=== PATIENT | female | born 1940 | race African-American/Black ===

== ENCOUNTER 2017-12-27 18:15 | Inpatient (IN) | payer MEDICARE, MEDICAID ==
[2017-12-27] MEDS ORDERED: NORMAL SALINE 1000 ML 1,000 ML IV ONE (19:53)
--- NOTE | 2017-12-27 19:56 | ER Document Report ---
ED Medical Screen (RME) - General Chief Complaint: Abnormal Lab Results Stated Complaint: POSSIBLE LOW SODIUM Time Seen by Provider: 12/27/17 19:53 Mode of Arrival: Wheelchair Information source: Patient, Relative Notes: 77-year-old female presented ED for complaint of low sodium. She states that she went to Dr. Reed's office last week he elsie blood and then he called her today told her to go and get blood drawn and then come to his office. When she got it to his office today she was told to come to the emergency room to get admitted for her low sodium. She has a set of labs with her from results from the doctor's office. She states she is also hurting from her arthritis that is chronic. Patient is alert and oriented. I have greeted and performed a rapid initial assessment of this patient. A comprehensive ED assessment and evaluation of the patient, analysis of test results and completion of medical decision making process will be conducted by an additional ED providers. TRAVEL OUTSIDE OF THE [place] IN LAST 30 DAYS: No - Related Data Allergies/Adverse Reactions: aspirin Allergy (Verified 12/27/17 18:19) Physical Exam - Vital signs Vitals: Temp Pulse Resp BP Pulse Ox 98.5 F 76 21 H 151/70 H 99 12/27/17 18:43 12/27/17 18:43 12/27/17 18:43 12/27/17 18:43 12/27/17 18:43 Course - Vital Signs Vital signs: Temp Pulse Resp BP Pulse Ox 98.5 F 76 21 H 151/70 H 99 12/27/17 18:43 12/27/17 18:43 12/27/17 18:43 12/27/17 18:43 12/27/17 18:43
--- NOTE | 2017-12-27 20:19 | ER Document Report ---
ED General - General Chief Complaint: Abnormal Lab Results Stated Complaint: POSSIBLE LOW SODIUM Time Seen by Provider: 12/27/17 19:53 Mode of Arrival: Wheelchair Information source: Relative TRAVEL OUTSIDE OF THE [place] IN LAST 30 DAYS: No - HPI Notes: 77-year-old lady presented today from Dr. Amin's office for evaluation of electrolyte abnormalities. Patient was seen at the office today and had lab work drawn and noted to have low sodium. Patient was referred here for admission. After speaking with family patient has been feeling generally tired and fatigued, patient has chronic arthritic pain in her knees. Patient also has been feeling slightly cold and places where people normally feel warm. No chest pain, no shortness of breath, no palpitations. - Related Data Allergies/Adverse Reactions: aspirin Allergy (Verified 12/27/17 18:19) Past Medical History - General Information source: Patient, Relative - Social History Smoking Status: Never Smoker Family History: None Review of Systems - Review of Systems Notes: REVIEW OF SYSTEMS: CONSTITUTIONAL: -fevers, -chills, + generalized fatigue, + tired EENT: -eye pain, + knee pain difficulty swallowing, -nasal congestion CARDIOVASCULAR: -chest pain, -syncope. RESPIRATORY: -cough, -SOB GASTROINTESTINAL: -abdominal pain, -nausea, -vomiting, -diarrhea GENITOURINARY: -dysuria, -hematuria MUSCULOSKELETAL: -back pain, -neck pain, + knee pain SKIN: -rash or skin lesions. HEMATOLOGIC: -easy bruising or bleeding. LYMPHATIC: -swollen, enlarged glands. NEUROLOGICAL: -altered mental status or loss of consciousness, -headache, - neurologic symptoms PSYCHIATRIC: -anxiety, -depression. ALL OTHER SYSTEMS REVIEWED AND NEGATIVE. Physical Exam - Vital signs Vitals: Temp Pulse Resp BP Pulse Ox 98.5 F 76 21 H 151/70 H 99 12/27/17 18:43 12/27/17 18:43 12/27/17 18:43 12/27/17 18:43 12/27/17 18:43 - Notes Notes: Reviewed vital signs and nursing note as charted by RN. CONSTITUTIONAL: Alert and oriented HEAD: Normocephalic; atraumatic EYES: PERRL ENT: normal nose; no rhinorrhea; dry mucous membranes NECK: Supple without meningismus; non-tender; no cervical lymphadenopathy, no masses CARD: Bradycardia; no murmurs, no clicks, no rubs, no gallops; symmetric distal pulses RESP: Normal chest excursion without splinting or tachypnea; breath sounds clear and equal bilaterally ABD/GI: Normal bowel sounds; non-distended; soft, BACK: The back appears normal and is non-tender to palpation EXT: Normal ROM in all joints; non-tender to palpation; no cyanosis, no effusions, no edema SKIN: Normal color for age and race; warm; dry; good turgor; capillary refill < 2 seconds; no acute lesions noted NEURO: .Cranial nerves 3-12 intact. Motor strength 5/5 bilaterally. Sensation intact to touch bilaterally. No pronator drift. Finger to nose intact bilaterally PSYCH: The patient's mood and manner are appropriate. Grooming and personal hygiene are appropriate. Course - Re-evaluation Re-evalutation: 12/27/17 20:51 77-year-old here for evaluation of abnormal lab findings Patient is here from the office of Dr. Amin I have reviewed the lab work and noted that patient has worsening kidney function with notable hyponatremia of 120, patient also has elevated TSH back and be contributing to her electrolyte abnormalities We will give patient gentle hydration We will obtain basic lab work, will consult Dr. Amin 12/27/17 22:16 Reassessment 10 PM Patient has improvement of her sodium compared to her sodium 2 days prior Patient does have worsening kidney function, discussed the case with Dr. Amin, agree with admission for further workup Recommended ultrasound of the kidneys, will obtain that I will add on urine as well as CK level Admit to inpatient - Vital Signs Vital signs: Temp Pulse Resp BP Pulse Ox 98.5 F 76 21 H 151/70 H 98 12/27/17 18:43 12/27/17 18:43 12/27/17 18:43 12/27/17 18:43 12/27/17 20:18 - Laboratory Result Diagrams: 12/27/17 20:45 12/27/17 20:45 Laboratory results interpreted by me: 12/27/17 12/27/17 20:45 20:45 MCV 98 H RDW 14.3 H Sodium 127.6 L Chloride 84 L BUN 29 H Creatinine 2.67 H Est GFR ( Amer) 21 L Est GFR (Non-Af Amer) 17 L Direct Bilirubin 0.6 H Total Protein 8.4 H Discharge - Discharge Clinical Impression: DEBORA (acute kidney injury), Hyponatremia Condition: Stable Disposition: ADMITTED INPATIENT Admitting Provider: Derek Unit Admitted: IMCU Referrals: HEBERT AMIN MD [Primary Care Provider] - Follow up as needed
[2017-12-27 20:58] LABS: ABSOLUTE EOSINOPHILS # (AUTO) 0.1 10^3/uL (0.0-0.6); ABSOLUTE LYMPHOCYTES (AUTO) 1.7 10^3/uL (0.5-4.7); ABSOLUTE MONOCYTES (AUTO) 0.8 10^3/uL (0.1-1.4); ABSOLUTE NEUT (AUTO) 4.3 10^3/uL (1.7-8.2); BASOPHILS % (AUTO) 0.6 % (0-2); HEMATOCRIT 38.9 % (36.0-47.0); HEMOGLOBIN 13.1 g/dL (12.0-15.5); LYMPHOCYTES % (AUTO) 24.9 % (13-45); MEAN CORPUSCULAR HEMOGLOBIN 32.9 pg (27.0-33.4); MEAN CORPUSCULAR HGB CONC 33.5 g/dL (32.0-36.0); MEAN CORPUSCULAR VOLUME 98 fl (80-97); MONOCYTES % (AUTO) 11.7 % (3-13); PLATELET COUNT 276 10^3/uL (150-450); RED BLOOD COUNT 3.97 10^6/uL (3.72-5.28); RED CELL DISTRIBUTION WIDTH 14.3 % (11.5-14.0); SEGMENTED NEUTROPHILS % (AUTO) 61.8 % (42-78); TOTAL CELLS COUNTED % (AUTO) 100 %; WHITE BLOOD COUNT 6.9 10^3/uL (4.0-10.5)
[2017-12-27 21:20] LABS: ALANINE AMINOTRANSFERASE 23 U/L (9-52); ALBUMIN 4.6 g/dL (3.5-5.0); ALKALINE PHOSPHATASE 82 U/L (38-126); ANION GAP 17 (5-19); ASPARTATE AMINO TRANSFERASE 29 U/L (14-36); BILIRUBIN,DIRECT 0.6 mg/dL (0.0-0.4); BILIRUBIN,TOTAL 0.9 mg/dL (0.2-1.3); BLOOD UREA NITROGEN 29 mg/dL (7-20); CALCIUM 9.4 mg/dL (8.4-10.2); CARBON DIOXIDE 27 mmol/L (22-30); CHLORIDE 84 mmol/L (98-107); GLUCOSE 89 mg/dL (75-110); POTASSIUM 3.8 mmol/L (3.6-5.0); SODIUM 127.6 mmol/L (137-145); TOTAL PROTEIN 8.4 g/dL (6.3-8.2)
[2017-12-27] MEDS ORDERED: HYDRALAZINE HCL INJ/PF 20 MG/1 ML SDV IV PRN (22:04)
[2017-12-27 23:18] LABS: URINE CREATININE 216.8 mg/dL (15-278)
[2017-12-27] MEDS: NORMAL SALINE 1000 ML 1,000 ML IV PRN (23:34)
--- NOTE | 2017-12-28 00:09 | RADIOLOGY REPORT (SQ) ---
EXAM DESCRIPTION: CT HEAD WITHOUT CLINICAL HISTORY: dizziness COMPARISON: None available TECHNIQUE: Axial CT of the head obtained from the skull apex to the skull base without contrast. FINDINGS: No acute intracranial hemorrhage identified. No mass, mass effect, shift of the midline, abnormal extra-axial fluid collection or CT evidence of acute ischemic change identified. The ventricular system and sulcal spaces are mildly enlarged compatible with mild cerebral atrophy. Confluent areas of hypodensity throughout the supratentorial white matter are nonspecific and may be related to chronic small vessel ischemic change. The visualized paranasal sinuses and the mastoids are clear. No skull fracture identified. Visualized orbits and globes are unremarkable. Atherosclerotic calcification of the intracranial internal carotid arteries. DLP:1033.75 mGy-cm IMPRESSION: 1. No acute intracranial abnormality by CT criteria. This exam was performed according to our departmental dose-optimization program, which includes automated exposure control, adjustment of the mA and/or kV according to patient size and/or use of iterative reconstruction technique.
--- NOTE | 2017-12-28 02:54 | RADIOLOGY REPORT (SQ) ---
EXAM DESCRIPTION: U/S RETROPERITON (RENAL/AORTA) CLINICAL HISTORY: worsening kidney function COMPARISON: None. TECHNIQUE: Real-time sonographic images of the retroperitoneum were obtained using a curved multihertz transducer. FINDINGS: The right kidney measures 9.1 cm in length. The left kidney measures 10.4 cm in length. No solid renal mass, shadowing renal calculi, or hydronephrosis. 1.9 cm superior pole right renal cyst. Possible echogenic debris within the urinary bladder. Normal urinary bladder wall thickness. IMPRESSION: 1. Possible echogenic debris in the urinary bladder. Correlation with urinalysis recommended. 2. No definite abnormality identified in the kidneys.
[2017-12-28 05:19] LABS: ABSOLUTE EOSINOPHILS # (AUTO) 0.1 10^3/uL (0.0-0.6); ABSOLUTE LYMPHOCYTES (AUTO) 1.6 10^3/uL (0.5-4.7); ABSOLUTE MONOCYTES (AUTO) 0.7 10^3/uL (0.1-1.4); BASOPHILS % (AUTO) 0.6 % (0-2); EOSINOPHILS % (AUTO) 2.3 % (0-6); HEMATOCRIT 33.6 % (36.0-47.0); HEMOGLOBIN 11.3 g/dL (12.0-15.5); LYMPHOCYTES % (AUTO) 24.1 % (13-45); MEAN CORPUSCULAR HEMOGLOBIN 32.4 pg (27.0-33.4); MEAN CORPUSCULAR HGB CONC 33.6 g/dL (32.0-36.0); MEAN CORPUSCULAR VOLUME 96 fl (80-97); MONOCYTES % (AUTO) 10.5 % (3-13); PLATELET COUNT 239 10^3/uL (150-450); RED BLOOD COUNT 3.49 10^6/uL (3.72-5.28); SEGMENTED NEUTROPHILS % (AUTO) 62.5 % (42-78); TOTAL CELLS COUNTED % (AUTO) 100 %; WHITE BLOOD COUNT 6.5 10^3/uL (4.0-10.5)
[2017-12-28 05:37] LABS: ANION GAP 12 (5-19); BLOOD UREA NITROGEN 33 mg/dL (7-20); CALCIUM 8.8 mg/dL (8.4-10.2); CARBON DIOXIDE 27 mmol/L (22-30); CHLORIDE 91 mmol/L (98-107); GLUCOSE 87 mg/dL (75-110); POTASSIUM 3.4 mmol/L (3.6-5.0); SODIUM 130.3 mmol/L (137-145)
[2017-12-28] MEDS: HYDRALAZINE HCL 25 MG TABLET PO SCH ×3 (06:03→21:32)
[2017-12-28] MEDS ORDERED: POTASSIUM CHLORIDE 10 MEQ TABLET.SA PO ONE (07:54)
[2017-12-28] MEDS ORDERED: AMLODIPINE BESYLATE 5 MG TABLET PO SCH (10:00)
[2017-12-28] MEDS: ENOXAPARIN SODIUM INJ 30 MG/0.3 ML DISP.SYRIN SUBCUT SCH (10:07)
[2017-12-28] MEDS: LANSOPRAZOLE 30 MG TAB.RAP.DR PO SCH (10:08)
[2017-12-28] MEDS: AMLODIPINE BESYLATE 5 MG TABLET PO SCH ×2 (10:08→21:32)
[2017-12-28] MEDS: LEVOTHYROXINE SODIUM 0.025 MG TABLET PO SCH (10:08)
--- NOTE | 2017-12-28 10:36 | RADIOLOGY REPORT (SQ) ---
EXAM DESCRIPTION: U/S LTD DUPLEX ART/JAKE FLOW COMPLETED DATE/TIME: 12/28/2017 9:48 am REASON FOR STUDY: Renal Artery US " r/o renal stenosis" COMPARISON: Renal ultrasound 12/28/2017 TECHNIQUE: Realtime and static grayscale images acquired. Selected color Doppler, velocities and spe ctral images recorded. LIMITATIONS: Difficult to visualize the renal artery origins off the aorta FINDINGS: RIGHT KIDNEY: RENAL ARTERY VELOCITIES: At the hilum, 54 cm/sec. Segmental artery velocity 49 cm/sec. RENAL VEIN: Color doppler flow present, patent. VELOCITY RATIO: 0.7. Normal waveforms. KIDNEY: 9 cm in length with diffuse cortical thinning and increased echogenicity from medical renal disease. 2 cm right upper pole cortical cyst. No hydronephrosis. No gross stones. LEFT KIDNEY: RENAL ARTERY VELOCITIES: At the hilum, 56 cm/sec. Segmental artery velocity 37 cm/sec. RENAL VEIN: Color doppler flow present, patent. VELOCITY RATIO: 1.5. Normal waveforms. KIDNEY: 10.4 cm in length with diffuse cortical thinning and increased echogenicity from medical arnulfo al disease. No stones. No hydronephrosis. BLADDER: Unremarkable OTHER: No other significant finding. IMPRESSION: NO DOPPLER EVIDENCE OF HEMODYNAMICALLY SIGNIFICANT RENAL ARTERY STENOSIS. COMMENT: NORMAL RENAL ARTERY/AORTA VELOCITY RATIO IS LESS THAN OR EQUAL TO 3.5. TECHNICAL DOCUMENTATION: JOB ID: [id number] [email or web address]- All Rights Reserved
--- NOTE | 2017-12-28 12:19 | PDOC H&P ---
History of Present Illness Admission Date/PCP: 12/27/17 22:17 HEBERT AMIN MD Patient complains of: Acute renal failure and hyponatremia History of Present Illness: RADHA MURPHY is a 77 year old female This 77-year-old females came to the office last month up to 4 years not taking any blood pressure medications and blood pressure was running 190/110 range with completely asymptomatic patient'sAnd the patient's initially started on her Diovan HCTZ which patient was taking exforge in the pastAnd then will get down to slowly week by week for the last 3 weeks the blood pressures to 150-160 range and also add the Norvasc 5 mg twice a day Last Wednesday patient's sodium was completely normal and creatinine was 1.03 with a recheck again the patient's creatinine was good to up to 1.69 and patient's sodium was 120 Patient's brought back to the office patient was complaining some mild weakness and some dizziness decided to send to the emergency departments will repeat sodium was 127 but patient's creatinine was 2.69 and decided to admit for further evaluations for the acute renal failure and hyponatremia Patient's denied any chest pain denied any shortness of the breath denied any headache but complaining some dizzy feeling Patient also have a hypothyroidism which is uncontrolled with the patient's came was about 35 TSH and patient was started on the levothyroxine's coming back to the 11 range When I saw the patient on the floor patients feeling better after starting the IV fluidsDenied any headache denied any bloody wheezing denied any dizziness denied any chest pain Past Medical History Cardiac Medical History: Reports: Hyperlipidema, Hypertension GI Medical History: Reports: Gastroesophageal Reflux Disease Past Surgical History Past Surgical History: Reports: Section, Cholecystectomy Social History Smoking Status: Former Smoker Last Time Smoked: 1969 Frequency of Alcohol Use: None Hx Prescription Drug Abuse: No - Advance Directive Resuscitation Status: Full Code Family History Family History: None, Reviewed & Not Pertinent Parental Family History Reviewed: Yes Children Family History Reviewed: Yes Sibling(s) Family History Reviewed.: Yes Medication/Allergy Home Medications: Amlodipine Besylate [Norvasc 5 mg Tablet] 5 mg PO DAILY 12/28/17 Levothyroxine Sodium [Synthroid 0.025 mg Tablet] 0.025 mg PO Q6AM 12/28/17 Omeprazole 40 mg PO DAILY 12/28/17 Pravastatin Sodium [Pravachol] 40 mg PO DAILY 12/28/17 Valsartan/Hydrochlorothiazide [Valsartan-Hctz 160-12.5 mg Tab] 1 tab PO DAILY Allergies/Adverse Reactions: aspirin Allergy (Verified 12/27/17 18:19) Review of Systems Constitutional: PRESENT: fatigue, weakness. ABSENT: chills, fever(s), headache( s), weight gain, weight loss Eyes: ABSENT: visual disturbances Ears: ABSENT: hearing changes Cardiovascular: ABSENT: chest pain, dyspnea on exertion, edema, orthropnea, palpitations Respiratory: ABSENT: cough, hemoptysis Gastrointestinal: ABSENT: abdominal pain, constipation, diarrhea, hematemesis, hematochezia, nausea, vomiting Genitourinary: ABSENT: dysuria, hematuria Musculoskeletal: ABSENT: joint swelling Integumentary: ABSENT: rash, wounds Neurological: ABSENT: abnormal gait, abnormal speech, confusion, dizziness, focal weakness, syncope Psychiatric: ABSENT: anxiety, depression, homidical ideation, suicidal ideation Endocrine: ABSENT: cold intolerance, heat intolerance, menstrual abnormalities, polydipsia, polyuria Hematologic/Lymphatic: ABSENT: easy bleeding, easy bruising, lymphadenopathy Physical Exam Vital Signs: Temp Pulse Resp BP Pulse Ox 97.6 F 55 L 14 138/52 H 96 12/28/17 08:05 12/28/17 08:05 12/28/17 08:05 12/28/17 08:05 12/28/17 08:05 Intake & Output 12/27/17 12/28/17 12/29/17 06:59 06:59 06:59 Weight 78.7 kg General appearance: PRESENT: no acute distress, well-developed, well-nourished Head exam: PRESENT: atraumatic, normocephalic Eye exam: PRESENT: conjunctiva pink, EOMI, PERRLA. ABSENT: scleral icterus Ear exam: PRESENT: normal external ear exam Mouth exam: PRESENT: moist, tongue midline Neck exam: PRESENT: full ROM. ABSENT: carotid bruit, JVD, lymphadenopathy, thyromegaly Respiratory exam: PRESENT: clear to auscultation maisha Cardiovascular exam: PRESENT: RRR. ABSENT: diastolic murmur, rubs, systolic murmur Pulses: PRESENT: normal dorsalis pedis pul, +2 pedal pulses bilateral Vascular exam: PRESENT: normal capillary refill GI/Abdominal exam: PRESENT: normal bowel sounds, soft. ABSENT: distended, guarding, mass, organolmegaly, rebound, tenderness Rectal exam: PRESENT: deferred Extremities exam: ABSENT: full ROM, left AKA, right AKA, left BKA, right BKA, calf tenderness, joint swelling, pedal edema, tenderness, other Musculoskeletal exam: PRESENT: ambulatory Neurological exam: PRESENT: alert, awake, oriented to person, oriented to place , oriented to time, oriented to situation, CN II-XII grossly intact. ABSENT: motor sensory deficit Psychiatric exam: PRESENT: appropriate affect, normal mood. ABSENT: homicidal ideation, suicidal ideation Skin exam: PRESENT: dry, intact, warm. ABSENT: cyanosis, rash Results Laboratory Results: 12/28/17 05:00 12/28/17 05:00 12/27/17 12/28/17 12/28/17 22:19 05:00 05:00 WBC 6.5 RBC 3.49 L Hgb 11.3 L Hct 33.6 L MCV 96 MCH 32.4 MCHC 33.6 RDW 14.0 Plt Count 239 Seg Neutrophils % 62.5 Lymphocytes % 24.1 Monocytes % 10.5 Eosinophils % 2.3 Basophils % 0.6 Absolute Neutrophils 4.0 Absolute Lymphocytes 1.6 Absolute Monocytes 0.7 Absolute Eosinophils 0.1 Absolute Basophils 0.0 Sodium 130.3 L Potassium 3.4 L Chloride 91 L Carbon Dioxide 27 Anion Gap 12 BUN 33 H Creatinine 2.26 H Est GFR ( Amer) 25 L Est GFR (Non-Af Amer) 21 L Glucose 87 Calcium 8.8 Urine Osmolality 237 L Impressions: Head CT 12/27/17 00:00 IMPRESSION: 1. No acute intracranial abnormality by CT criteria. This exam was performed according to our departmental dose-optimization program, which includes automated exposure control, adjustment of the mA and/or kV according to patient size and/or use of iterative reconstruction technique. Renal Ultrasound 12/27/17 22:01 IMPRESSION: 1. Possible echogenic debris in the urinary bladder. Correlation with urinalysis recommended. 2. No definite abnormality identified in the kidneys. Vascular Ultrasound 12/28/17 00:00 IMPRESSION: NO DOPPLER EVIDENCE OF HEMODYNAMICALLY SIGNIFICANT RENAL ARTERY STENOSIS. Assessment & Plan - Diagnosis (1) DEBORA (acute kidney injury) Is this a current diagnosis for this admission?: Yes Plan: Hospital discussed with the nephrology Dr. Alamo. The Diovan and HCTZ start the patient on IV fluid and will get the ultrasound of the kidney to further evaluateCheck the urine culture (2) Hyponatremia Is this a current diagnosis for this admission?: Yes Plan: Severe hyponatremia with some symptomatic currently most likely related to the dehydration's with patient suddenly try to control the diets and with the hydrochlorothiazide will stop the Diovan HCTZ started on IV fluid (3) Uncontrolled hypertension Is this a current diagnosis for this admission?: Yes Plan: We will continues on Norvasc 5 mg p.o. twice a day and add the hydralazine 25 mg p.o. every 8 and stop the Diovan HCTZ will also get the vascular ultrasounds to rule out any renal artery stenosis and 2D echocardiogram (4) Hyperlipidemia Qualifiers: Hyperlipidemia type: unspecified Qualified Code(s): E78.5 - Hyperlipidemia , unspecified Is this a current diagnosis for this admission?: Yes Plan: Continues to statin (5) Hypothyroidism Qualifiers: Hypothyroidism type: unspecified Qualified Code(s): E03.9 - Hypothyroidism , unspecified Is this a current diagnosis for this admission?: Yes Plan: Continues to levothyroxine's - Time Time Spent: 30 to 50 Minutes Medications reviewed and adjusted accordingly: Yes Anticipated discharge: Home Within: Other - Inpatient Certification Medical Necessity: Need Close Monitoring Due to Risk of Patient Decompensation, Need For IV Fluids Post Hospital Care: D/C [employer] [place] Documentation - Plan Summary Plan Summary: Continues IV fluid will get the 2D echo and vascular ultrasounds and continues to monitor the patient's. Discussed with the daughter about the patient's current conditions
--- NOTE | 2017-12-28 17:05 | RADIOLOGY REPORT (SQ) ---
EXAM DESCRIPTION: CAROTID DOPPLER COMPLETED DATE/TIME: 12/28/2017 4:44 pm REASON FOR STUDY: dizziness COMPARISON: CT brain 12/27/2017 TECHNIQUE: Grayscale ultrasound, Doppler velocity and spectra, and color Doppler images acquired of the extra-cranial carotid and vertebral arteries. Images stored on PACS. LIMITATIONS: None. FINDINGS: RIGHT CAROTID CCA Velocities: Within normal limits. ICA Velocities Peak systolic 1.1 m/s. End diastolic 0.29 m/s. Proximal ICA/CCA peak systolic ratio 1.4. Spectra normal. No significant plaque. LEFT CAROTID CCA Velocities: Within normal limits. ICA Velocities Peak systolic 0.8 m/s. End diastolic 0.18 m/s. Proximal ICA/CCA peak systolic ratio 1.8. Spectra normal. No significant plaque. VERTEBRAL ARTERIES: Antegrade flow. Normal waveforms. SUBCLAVIAN ARTERIES: Not examined. OTHER: No other significant finding. IMPRESSION: NO HEMODYNAMICALLY SIGNIFICANT STENOSIS. COMMENT: Quality ID #[id number]: Velocity criteria are extrapolated from the diameter data as defined by t he Society of Radiologists in Ultrasound Consensus Conference. Radiology 2003: 229; 340-346. TECHNICAL DOCUMENTATION: JOB ID: [id number] [employer]- All Rights Reserved
[2017-12-28] MEDS: NORMAL SALINE 1000 ML 1,000 ML IV PRN (18:00)
--- NOTE | 2017-12-28 18:31 | XCELERA REPORT ---
[address] [address] Transthoracic Echocardiogram Report Name: RADHA MURPHY Age: 77 yrs Gender: Female : 1940 Patient Status: Inpatient Patient Location: [address] [place] [id number] Study Date: 12/28/2017 03:23 PM Height: 64 in Weight: 169 lb BSA: 1.8 m2 Procedure: A complete two-dimensional transthoracic echocardiogram was performed (2D, M-mode, spectral and color flow Doppler). The study was technically adequate with some images being suboptimal in quality. Reason For Study: uncontrol htn Ordering Physician: HEBERT AMIN Performed By: Bernarda Lou Interpretation Summary The left ventricular ejection fraction is normal. Doppler measurements suggest pseudonormalized left ventricular relaxation, which is associated with grade II/IV or mild to moderate diastolic dysfunction There is mild concentric left ventricular hypertrophy. The left ventricle is grossly normal size. Wall motion cannot be accurately commented on, but no definite regional wall motion abnormalities noted. The right ventricular systolic function is normal. The left atrial size is normal. The right atrium is normal in size There is a mild amount of mitral regurgitation There is no mitral valve stenosis. There is a moderate amount of aortic regurgitation There is mild aortic stenosis There is a peak gradient of 25-30 mm of Hg. There is a trace to mild amount of tricuspid regurgitation There is mild pulmonary hypertension by echo Right ventricular systolic pressure is estimated to be elevated at 30- 40mmHg. Minimal pericardial effusion. MMode/2D Measurements & Calculations RVDd: 2.2 cm LVIDd: 5.2 cmFS: 41.5 % Ao root diam: 2.9 cm IVSd: 1.1 cm LVIDs: 3.0 cmEDV(Teich): 127.3 ml LVPWd: 1.1 cmESV(Teich): 35.6 ml Ao root area: 6.7 cm2 EF(Teich): 72.1 % LA dimension: 3.3 cm LVOT diam: 1.9 cm LVOT area: 2.8 cm2 Doppler Measurements & Calculations MV E max tomasz: MV P1/2t max tomasz: Ao V2 max: AI max tomasz: 74.5 cm/sec 74.0 cm/sec 267.1 cm/sec 495.3 cm/sec MV A max tomasz: MV P1/2t: 61.5 msec Ao max PG: AI max P.1 cm/sec MVA(P1/2t): 3.6 cm2 28.5 mmHg 98.1 mmHg MV E/A: 0.71 MV dec slope: REBEKAH(V,D): 1.6 cm2 AI dec slope: 352.9 cm/sec2 282.0 cm/sec2 AI P1/2t: 514.5 msec LV V1 max PG: PA V2 max: TR max tomasz: 9.9 mmHg 124.9 cm/sec 289.1 cm/sec LV V1 max: PA max P.2 mmHg TR max P.0 cm/sec 33.4 mmHg Left Ventricle The left ventricle is grossly normal size. There is mild concentric left ventricular hypertrophy. The left ventricular ejection fraction is normal. Doppler measurements suggest pseudonormalized left ventricular relaxation, which is associated with grade II/IV or mild to moderate diastolic dysfunction. Wall motion cannot be accurately commented on, but no definite regional wall motion abnormalities noted. Right Ventricle The right ventricle is grossly normal size. There is normal right ventricular wall thickness. The right ventricular systolic function is normal. Atria The right atrium is normal in size. The left atrial size is normal. Interarterial septum not well visualized and not well dopplered. Cannot comment on ASD/PFO presence. Mitral Valve The mitral valve is grossly normal. There is no mitral valve stenosis. There is a mild amount of mitral regurgitation. Aortic Valve The aortic valve is mildly calcified. There is mild aortic stenosis. There is a peak gradient of 25-30 mm of Hg. There is a moderate amount of aortic regurgitation. Tricuspid Valve The tricuspid valve is not well visualized secondary to technical limitations. There is no tricuspid stenosis. There is a trace to mild amount of tricuspid regurgitation. There is mild pulmonary hypertension by echo. Right ventricular systolic pressure is estimated to be elevated at 30-40mmHg. Pulmonic Valve The pulmonic valve is not well visualized. Great Vessels The aortic root is not well visualized but is probably normal size. The inferior vena cava was not well visualized. Effusions Minimal pericardial effusion. : HEBERT AMIN > Melody Farmer
[2017-12-28] MEDS: ATORVASTATIN CALCIUM 10 MG TABLET PO SCH (21:32)
[2017-12-29] MEDS: HYDRALAZINE HCL 25 MG TABLET PO SCH ×3 (05:18→21:37)
[2017-12-29] MEDS: NORMAL SALINE 1000 ML 1,000 ML IV PRN (06:24)
[2017-12-29 09:06] LABS: ABSOLUTE BASOPHILS # (AUTO) 0.1 10^3/uL (0.0-0.2); ABSOLUTE EOSINOPHILS # (AUTO) 0.1 10^3/uL (0.0-0.6); ABSOLUTE LYMPHOCYTES (AUTO) 1.6 10^3/uL (0.5-4.7); ABSOLUTE MONOCYTES (AUTO) 0.6 10^3/uL (0.1-1.4); ABSOLUTE NEUT (AUTO) 4.5 10^3/uL (1.7-8.2); BASOPHILS % (AUTO) 0.9 % (0-2); HEMATOCRIT 35.2 % (36.0-47.0); HEMOGLOBIN 11.8 g/dL (12.0-15.5); LYMPHOCYTES % (AUTO) 23.1 % (13-45); MEAN CORPUSCULAR HEMOGLOBIN 32.3 pg (27.0-33.4); MEAN CORPUSCULAR HGB CONC 33.6 g/dL (32.0-36.0); MEAN CORPUSCULAR VOLUME 96 fl (80-97); MONOCYTES % (AUTO) 9.2 % (3-13); PLATELET COUNT 238 10^3/uL (150-450); RED BLOOD COUNT 3.66 10^6/uL (3.72-5.28); RED CELL DISTRIBUTION WIDTH 14.1 % (11.5-14.0); SEGMENTED NEUTROPHILS % (AUTO) 64.8 % (42-78); TOTAL CELLS COUNTED % (AUTO) 100 %; WHITE BLOOD COUNT 6.9 10^3/uL (4.0-10.5)
[2017-12-29 09:24] LABS: ANION GAP 13 (5-19); BLOOD UREA NITROGEN 21 mg/dL (7-20); CARBON DIOXIDE 24 mmol/L (22-30); CHLORIDE 99 mmol/L (98-107); SODIUM 135.9 mmol/L (137-145)
[2017-12-29 09:25] LABS: GLUCOSE 94 mg/dL (75-110)
[2017-12-29] MEDS ORDERED: NORMAL SALINE 1000 ML 1,000 ML IV PRN (09:41)
[2017-12-29] MEDS: LANSOPRAZOLE 30 MG TAB.RAP.DR PO SCH (10:08)
[2017-12-29] MEDS: AMLODIPINE BESYLATE 5 MG TABLET PO SCH ×2 (10:08→21:37)
[2017-12-29] MEDS: LEVOTHYROXINE SODIUM 0.025 MG TABLET PO SCH (10:08)
[2017-12-29] MEDS: CEPHALEXIN 500 MG CAPSULE PO SCH ×2 (10:08→21:37)
[2017-12-29] MEDS: ENOXAPARIN SODIUM INJ 30 MG/0.3 ML DISP.SYRIN SUBCUT SCH (10:09)
--- NOTE | 2017-12-29 15:10 | PDOC PROGRESS REPORT ---
Subjective Progress Note for:: 12/29/17 Subjective:: Patient is currently doing well patient is currently doing much better Patient's kidney function is all improved with creatinine is 1.45 and sodium is all 135 Patient's carotid Doppler and echo was all stable Patient's denied any chest pain denied any shortness of the breath She does walk in the hallway without any problem Reason For Visit: ACUTE RENAL FAILURE Physical Exam Vital Signs: Temp Pulse Resp BP Pulse Ox 97.6 F 83 16 171/63 H 100 12/29/17 14:53 12/29/17 14:53 12/29/17 14:53 12/29/17 14:53 12/29/17 14:53 Intake & Output 12/28/17 12/29/17 12/30/17 06:59 06:59 06:59 Intake Total 2569 300 Balance 2569 300 Weight 78.7 kg 79.3 kg General appearance: PRESENT: no acute distress, well-developed, well-nourished Head exam: PRESENT: atraumatic, normocephalic Eye exam: PRESENT: conjunctiva pink, EOMI, PERRLA. ABSENT: scleral icterus Ear exam: PRESENT: normal external ear exam Mouth exam: PRESENT: moist, tongue midline Neck exam: PRESENT: full ROM. ABSENT: carotid bruit, JVD, lymphadenopathy, thyromegaly Respiratory exam: PRESENT: clear to auscultation maisha Cardiovascular exam: PRESENT: RRR. ABSENT: diastolic murmur, rubs, systolic murmur Pulses: PRESENT: normal dorsalis pedis pul, +2 pedal pulses bilateral Vascular exam: PRESENT: normal capillary refill GI/Abdominal exam: PRESENT: normal bowel sounds, soft. ABSENT: distended, guarding, mass, organolmegaly, rebound, tenderness Rectal exam: PRESENT: deferred Extremities exam: ABSENT: full ROM, left AKA, right AKA, left BKA, right BKA, calf tenderness, joint swelling, pedal edema, tenderness, other Musculoskeletal exam: PRESENT: ambulatory Neurological exam: PRESENT: alert, awake, oriented to person, oriented to place , oriented to time, oriented to situation, CN II-XII grossly intact. ABSENT: motor sensory deficit Psychiatric exam: PRESENT: appropriate affect, normal mood. ABSENT: homicidal ideation, suicidal ideation Skin exam: PRESENT: dry, intact, warm. ABSENT: cyanosis, rash Results Laboratory Results: 12/29/17 08:46 12/29/17 08:46 12/29/17 12/29/17 08:46 08:46 WBC 6.9 RBC 3.66 L Hgb 11.8 L Hct 35.2 L MCV 96 MCH 32.3 MCHC 33.6 RDW 14.1 H Plt Count 238 Seg Neutrophils % 64.8 Lymphocytes % 23.1 Monocytes % 9.2 Eosinophils % 2.0 Basophils % 0.9 Absolute Neutrophils 4.5 Absolute Lymphocytes 1.6 Absolute Monocytes 0.6 Absolute Eosinophils 0.1 Absolute Basophils 0.1 Sodium 135.9 L Potassium 4.0 Chloride 99 Carbon Dioxide 24 Anion Gap 13 BUN 21 H Creatinine 1.45 H Est GFR ( Amer) 42 L Est GFR (Non-Af Amer) 35 L Glucose 94 Calcium 9.0 12/27/17 22:19 Clean Catch Midstream Urine Culture - Final Group B Beta Streptococcus Impressions: Head CT 12/27/17 00:00 IMPRESSION: 1. No acute intracranial abnormality by CT criteria. This exam was performed according to our departmental dose-optimization program, which includes automated exposure control, adjustment of the mA and/or kV according to patient size and/or use of iterative reconstruction technique. Renal Ultrasound 12/27/17 22:01 IMPRESSION: 1. Possible echogenic debris in the urinary bladder. Correlation with urinalysis recommended. 2. No definite abnormality identified in the kidneys. Carotid Doppler Study 12/28/17 00:00 IMPRESSION: NO HEMODYNAMICALLY SIGNIFICANT STENOSIS. Vascular Ultrasound 12/28/17 00:00 IMPRESSION: NO DOPPLER EVIDENCE OF HEMODYNAMICALLY SIGNIFICANT RENAL ARTERY STENOSIS. Assessment & Plan - Diagnosis (1) DEBORA (acute kidney injury) Is this a current diagnosis for this admission?: Yes Plan: Currently all resolving continues IV fluid (2) Hyponatremia Is this a current diagnosis for this admission?: Yes Plan: Currently all resolved (3) Uncontrolled hypertension Is this a current diagnosis for this admission?: Yes Plan: Currently better controlled with this hydralazine (4) Hyperlipidemia Qualifiers: Hyperlipidemia type: unspecified Qualified Code(s): E78.5 - Hyperlipidemia , unspecified Is this a current diagnosis for this admission?: Yes Plan: Continues to statin (5) Hypothyroidism Qualifiers: Hypothyroidism type: unspecified Qualified Code(s): E03.9 - Hypothyroidism , unspecified Is this a current diagnosis for this admission?: Yes Plan: Continues to levothyroxine's - Time Time Spent with patient: 15-24 minutes Medications reviewed and adjusted accordingly: Yes Anticipated discharge: Home Within: within 24 hours - Inpatient Certification Medical Necessity: Need Close Monitoring Due to Risk of Patient Decompensation, Need For IV Fluids Post Hospital Care: D/C Cloth Neutralizer Documentation - Plan Summary Plan Summary: Discussed with the patient and daughter about the patient's current conditions of the patient's continues to be improved in the next 24 Hour Discharge Homes
[2017-12-29] MEDS: ATORVASTATIN CALCIUM 10 MG TABLET PO SCH (21:37)
[2017-12-30] MEDS: HYDRALAZINE HCL 25 MG TABLET PO SCH ×2 (05:04→13:10)
[2017-12-30 09:16] LABS: ABSOLUTE BASOPHILS # (AUTO) 0.1 10^3/uL (0.0-0.2); ABSOLUTE EOSINOPHILS # (AUTO) 0.1 10^3/uL (0.0-0.6); ABSOLUTE LYMPHOCYTES (AUTO) 1.8 10^3/uL (0.5-4.7); ABSOLUTE MONOCYTES (AUTO) 0.6 10^3/uL (0.1-1.4); EOSINOPHILS % (AUTO) 1.3 % (0-6); HEMATOCRIT 34.8 % (36.0-47.0); HEMOGLOBIN 11.6 g/dL (12.0-15.5); LYMPHOCYTES % (AUTO) 23.4 % (13-45); MEAN CORPUSCULAR HEMOGLOBIN 32.4 pg (27.0-33.4); MEAN CORPUSCULAR HGB CONC 33.4 g/dL (32.0-36.0); MEAN CORPUSCULAR VOLUME 97 fl (80-97); MONOCYTES % (AUTO) 7.7 % (3-13); PLATELET COUNT 272 10^3/uL (150-450); RED BLOOD COUNT 3.59 10^6/uL (3.72-5.28); RED CELL DISTRIBUTION WIDTH 14.4 % (11.5-14.0); SEGMENTED NEUTROPHILS % (AUTO) 66.6 % (42-78); TOTAL CELLS COUNTED % (AUTO) 100 %; WHITE BLOOD COUNT 7.5 10^3/uL (4.0-10.5)
[2017-12-30 09:35] LABS: ANION GAP 12 (5-19); BLOOD UREA NITROGEN 12 mg/dL (7-20); CALCIUM 9.4 mg/dL (8.4-10.2); CARBON DIOXIDE 24 mmol/L (22-30); CHLORIDE 101 mmol/L (98-107); GLUCOSE 108 mg/dL (75-110); POTASSIUM 3.9 mmol/L (3.6-5.0); SODIUM 136.9 mmol/L (137-145)
[2017-12-30] MEDS: ENOXAPARIN SODIUM INJ 30 MG/0.3 ML DISP.SYRIN SUBCUT SCH (09:47)
[2017-12-30] MEDS: CEPHALEXIN 500 MG CAPSULE PO SCH (09:47)
[2017-12-30] MEDS: AMLODIPINE BESYLATE 5 MG TABLET PO SCH (09:48)
[2017-12-30] MEDS: LEVOTHYROXINE SODIUM 0.025 MG TABLET PO SCH (09:48)
[2017-12-30] MEDS: LANSOPRAZOLE 30 MG TAB.RAP.DR PO SCH (09:48)
--- NOTE | 2017-12-30 10:26 | PDOC DISCHARGE SUMMARY ---
General - Admit/Disc Date/PCP Admission Date/Primary Care Provider: 12/27/17 22:17 HEBERT AMIN MD Discharge Date: 12/30/17 - Discharge Diagnosis (1) DEBORA (acute kidney injury) Is this a current diagnosis for this admission?: Yes Summary: Currently all resolved (2) Hyponatremia Is this a current diagnosis for this admission?: Yes Summary: Currently all resolved (3) Uncontrolled hypertension Is this a current diagnosis for this admission?: Yes Summary: Currently all improving stay in 140-150 range will readjust the hydralazine the next week slowly (4) Hyperlipidemia Is this a current diagnosis for this admission?: Yes Summary: Continues to current medications (5) Hypothyroidism Is this a current diagnosis for this admission?: Yes Summary: Currently stable - Additional Information Resuscitation Status: Full Code Discharge Diet: Cardiac Discharge Activity: Activity As Tolerated Prescriptions: Amlodipine Besylate [Norvasc 5 mg Tablet] 5 mg PO Q12 #60 tablet Cephalexin Monohydrate [Keflex 500 mg Capsule] 500 mg PO Q12 #10 capsule Hydralazine HCl [Apresoline 25 mg Tablet] 25 mg PO Q8 #90 tablet Home Medications: Levothyroxine Sodium [Synthroid 0.025 mg Tablet] 0.025 mg PO Q6AM 12/28/17 Omeprazole 40 mg PO DAILY 12/28/17 Pravastatin Sodium [Pravachol] 40 mg PO DAILY 12/28/17 Amlodipine Besylate [Norvasc 5 mg Tablet] 5 mg PO Q12 #60 tablet 12/30/17 Cephalexin Monohydrate [Keflex 500 mg Capsule] 500 mg PO Q12 #10 capsule Hydralazine HCl [Apresoline 25 mg Tablet] 25 mg PO Q8 #90 tablet 12/30/17 History of Present Illness History of Present Illness: RADHA MURPHY is a 77 year old female This 77-year-old females came to the office last month up to 4 years not taking any blood pressure medications and blood pressure was running 190/110 range with completely asymptomatic patient'sAnd the patient's initially started on her Diovan HCTZ which patient was taking exforge in the pastAnd then will get down to slowly week by week for the last 3 weeks the blood pressures to 150-160 range and also add the Norvasc 5 mg twice a day Last Wednesday patient's sodium was completely normal and creatinine was 1.03 with a recheck again the patient's creatinine was good to up to 1.69 and patient's sodium was 120 Patient's brought back to the office patient was complaining some mild weakness and some dizziness decided to send to the emergency departments will repeat sodium was 127 but patient's creatinine was 2.69 and decided to admit for further evaluations for the acute renal failure and hyponatremia Patient's denied any chest pain denied any shortness of the breath denied any headache but complaining some dizzy feeling Patient also have a hypothyroidism which is uncontrolled with the patient's came was about 35 TSH and patient was started on the levothyroxine's coming back to the 11 range When I saw the patient on the floor patients feeling better after starting the IV fluidsDenied any headache denied any bloody wheezing denied any dizziness denied any chest pain Hospital Course Hospital Course: This is a 77-year-old female was basically admitted because of hyponatremia and uncontrolled hypertension's in the renal failure Patient was started on IV fluids and stop the Diovan and patients pretty much improved all the symptoms and renal failure is all resolved and hyponatremia is all resolved Patient hctzwas also stopped most likely related to that side effect with the hyponatremia Patient have a vascular ultrasound done to rule out any renal artery stenosis was also negative's and a CT of the head and carotid Doppler was all negative Patient echocardiogram was all stable except some mild aortic regurgitations follow-up outpatients cardiology This with the patient and the daughter about the patient's current condition and the changing in the medications Otherwise patient's doing well walking the hallway with some physical therapy and fall precautions Physical Exam Vital Signs: Temp Pulse Resp BP Pulse Ox 97.8 F 85 16 169/63 H 100 12/30/17 07:23 12/30/17 07:23 12/30/17 07:23 12/30/17 07:23 12/30/17 07:23 Intake & Output 12/29/17 12/30/17 12/31/17 06:59 06:59 06:59 Intake Total 2569 2925 Balance 2569 2925 Weight 79.3 kg 80.1 kg General appearance: PRESENT: no acute distress, well-developed, well-nourished Head exam: PRESENT: atraumatic, normocephalic Eye exam: PRESENT: conjunctiva pink, EOMI, PERRLA. ABSENT: scleral icterus Ear exam: PRESENT: normal external ear exam Mouth exam: PRESENT: moist, tongue midline Neck exam: PRESENT: full ROM. ABSENT: carotid bruit, JVD, lymphadenopathy, thyromegaly Respiratory exam: PRESENT: clear to auscultation maisha Cardiovascular exam: PRESENT: RRR. ABSENT: diastolic murmur, rubs, systolic murmur Pulses: PRESENT: normal dorsalis pedis pul, +2 pedal pulses bilateral Vascular exam: PRESENT: normal capillary refill GI/Abdominal exam: PRESENT: normal bowel sounds, soft. ABSENT: distended, guarding, mass, organolmegaly, rebound, tenderness Rectal exam: PRESENT: deferred Extremities exam: ABSENT: full ROM, left AKA, right AKA, left BKA, right BKA, calf tenderness, joint swelling, pedal edema, tenderness, other Musculoskeletal exam: PRESENT: ambulatory Neurological exam: PRESENT: alert, awake, oriented to person, oriented to place , oriented to time, oriented to situation, CN II-XII grossly intact. ABSENT: motor sensory deficit Psychiatric exam: PRESENT: appropriate affect, normal mood. ABSENT: homicidal ideation, suicidal ideation Skin exam: PRESENT: dry, intact, warm. ABSENT: cyanosis, rash Results Laboratory Results: 12/30/17 09:07 12/30/17 09:07 12/30/17 12/30/17 09:07 09:07 WBC 7.5 RBC 3.59 L Hgb 11.6 L Hct 34.8 L MCV 97 MCH 32.4 MCHC 33.4 RDW 14.4 H Plt Count 272 Seg Neutrophils % 66.6 Lymphocytes % 23.4 Monocytes % 7.7 Eosinophils % 1.3 Basophils % 1.0 Absolute Neutrophils 5.0 Absolute Lymphocytes 1.8 Absolute Monocytes 0.6 Absolute Eosinophils 0.1 Absolute Basophils 0.1 Sodium 136.9 L Potassium 3.9 Chloride 101 Carbon Dioxide 24 Anion Gap 12 BUN 12 Creatinine 1.14 Est GFR ( Amer) 56 L Est GFR (Non-Af Amer) 46 L Glucose 108 Calcium 9.4 Impressions: Head CT 12/27/17 00:00 IMPRESSION: 1. No acute intracranial abnormality by CT criteria. This exam was performed according to our departmental dose-optimization program, which includes automated exposure control, adjustment of the mA and/or kV according to patient size and/or use of iterative reconstruction technique. Renal Ultrasound 12/27/17 22:01 IMPRESSION: 1. Possible echogenic debris in the urinary bladder. Correlation with urinalysis recommended. 2. No definite abnormality identified in the kidneys. Carotid Doppler Study 12/28/17 00:00 IMPRESSION: NO HEMODYNAMICALLY SIGNIFICANT STENOSIS. Vascular Ultrasound 12/28/17 00:00 IMPRESSION: NO DOPPLER EVIDENCE OF HEMODYNAMICALLY SIGNIFICANT RENAL ARTERY STENOSIS. Qualifiers - * PATEINT BEING DISCHARGED WITH ANY OF THE FOLLOWING DIAGNOSIS?: No Plan Time Spent: Greater than 30 Minutes - Discussed with the patient about the all current conditions and discussed with the daughters follow outpatient in 1 week will repeat the Chem-7 in the readjust the blood pressure medications
[2017-12-30 13:46] VITALS: BP 150/55
== END 2017-12-30 14:21 | disposition home health service (06) | DRG 683 ==
LOC: ER 18:15 → EH 22:17 → 3N 12-28 05:35
PROVIDERS: ADMIT Family Medicine; ATTEND Family Medicine
DX: N17.9 Acute kidney failure, unspecified (principal); E87.1 Hypo-osmolality and hyponatremia; I10 Essential (primary) hypertension; E78.5 Hyperlipidemia, unspecified; E03.9 Hypothyroidism, unspecified; K21.9 Gastro-esophageal reflux disease without esophagitis; E86.0 Dehydration; B95.1 Streptococcus, group B, as the cause of diseases classified elsewhere; Z90.49 Acquired absence of other specified parts of digestive tract; Z87.891 Personal history of nicotine dependence; Z88.6 Allergy status to analgesic agent; Z79.899 Other long term (current) drug therapy
CPT/HCPCS: 36415; 70450; 76770; 80048; 80053; 82550; 82570; 83930; 83935; 84300; 85025; 87086; 87088; 93306; 93880; 93976; 96360; 99285; G8978-GP; G8979-GP; J0360; J1650; J7030

== ENCOUNTER → 2017-12-27 | Outpatient (CLI) | payer MEDICARE, MEDICAID | LOC: OD 15:31 | PROVIDERS: ATTEND Family Medicine | DX: Z53.9 Procedure and treatment not carried out, unspecified reason (principal) ==

== ENCOUNTER 2018-04-09 09:33 | Emergency (ER) | payer MEDICARE, MEDICAID ==
--- NOTE | 2018-04-09 09:52 | ER Document Report ---
ED Medical Screen (RME) - General Chief Complaint: Blood Pressure Problem Stated Complaint: BLOOD PRESSURE ISSUE Time Seen by Provider: 04/09/18 09:50 Mode of Arrival: Ambulatory Information source: Patient Notes: 77-year-old female history of hypertension on amlodipine frusemide and hydralazine presents with complaints of high blood pressure over the past few weeks with sensation of lightheadedness today and decreased appetite patient denies any chest pain shortness of breath difficulty breathing, denies any headaches neurological deficits I have greeted and performed a rapid initial assessment of this patient. A comprehensive ED assessment and evaluation of the patient, analysis of test results and completion of the medical decision making process will be conducted by additional ED providers. PHYSICAL EXAMINATION: GENERAL: Well-appearing, well-nourished and in no acute distress. Blood pressure 154/75 HEAD: Atraumatic, normocephalic. EYES: Pupils equal round extraocular movements intact, conjunctiva are normal. ENT: Nares patent NECK: Normal range of motion LUNGS: No respiratory distress Musculoskeletal: Normal range of motion NEUROLOGICAL: Normal speech, normal gait. PSYCH: Normal mood, normal affect. SKIN: Warm, Dry, normal turgor, no rashes or lesions noted. TRAVEL OUTSIDE OF THE [place] IN LAST 30 DAYS: No - Related Data Allergies/Adverse Reactions: aspirin Allergy (Verified 04/09/18 09:50) Past Medical History - Social History Chew tobacco use (# tins/day): No Frequency of alcohol use: None Drug Abuse: None - Past Medical History Cardiac Medical History: Reports: Hx Hypercholesterolemia, Hx Hypertension Renal/ Medical History: Denies: Hx Peritoneal Dialysis GI Medical History: Reports: Hx Gastroesophageal Reflux Disease Past Surgical History: Reports: Hx Section, Hx Cholecystectomy - Immunizations History of Influenza Vaccine for 08/2017 - 01/2018 Season: Refused Physical Exam - Vital signs Vitals: Temp Pulse Resp BP Pulse Ox 98.7 F 81 16 152/75 H 97 04/09/18 09:43 04/09/18 09:43 04/09/18 09:43 04/09/18 09:43 04/09/18 09:43 Course - Vital Signs Vital signs: Temp Pulse Resp BP Pulse Ox 98.7 F 81 16 152/75 H 97 04/09/18 09:43 04/09/18 09:43 04/09/18 09:43 04/09/18 09:43 04/09/18 09:43 Doctor's Discharge - Discharge Referrals: HEBERT AMIN MD [Primary Care Provider] - Follow up as needed
--- NOTE | 2018-04-09 10:22 | ER Document Report ---
ED General - General Chief Complaint: Blood Pressure Problem Stated Complaint: BLOOD PRESSURE ISSUE Time Seen by Provider: 04/09/18 09:50 Mode of Arrival: Ambulatory Information source: Patient, Relative - Grandson Notes: 77-year-old hypothyroid, hypertensive, hyperlipidemic female patient of Dr. Amin had a episode of lightheadedness for a few seconds which caused her to stagger backwards. She did not fall. She called her daughter who sent the grandson and girlfriend over to the house. The girlfriend took the blood pressure was 184/90 something. The patient denies symptoms at this time. No headache, dizziness, vertigo, sore throat, runny nose, cough, chest pain, shortness of breath, nausea, vomiting, diarrhea, abdominal pain, dysuria. No blood or black in stools. No hx anemia. TRAVEL OUTSIDE OF THE [place] IN LAST 30 DAYS: No - Related Data Allergies/Adverse Reactions: aspirin Allergy (Verified 04/09/18 09:50) Past Medical History - General Information source: Patient - Social History Smoking Status: Former Smoker Chew tobacco use (# tins/day): No Frequency of alcohol use: None Drug Abuse: None Lives with: Family Family History: None, Reviewed & Not Pertinent Patient has suicidal ideation: No Patient has homicidal ideation: No - Past Medical History Cardiac Medical History: Reports: Hx Hypercholesterolemia, Hx Hypertension Renal/ Medical History: Denies: Hx Peritoneal Dialysis GI Medical History: Reports: Hx Gastroesophageal Reflux Disease Past Surgical History: Reports: Hx Section, Hx Cholecystectomy Review of Systems - Review of Systems Constitutional: No symptoms reported EENT: No symptoms reported Cardiovascular: No symptoms reported Respiratory: No symptoms reported Gastrointestinal: No symptoms reported Genitourinary: No symptoms reported Female Genitourinary: No symptoms reported Musculoskeletal: No symptoms reported Skin: No symptoms reported Hematologic/Lymphatic: No symptoms reported Neurological/Psychological: See HPI Physical Exam - Vital signs Vitals: Temp Pulse Resp BP Pulse Ox 98.7 F 81 16 152/75 H 97 04/09/18 09:43 04/09/18 09:43 04/09/18 09:43 04/09/18 09:43 04/09/18 09:43 Interpretation: Normal - General General appearance: Appears well, Alert - HEENT Head: Normocephalic, Atraumatic Eyes: Normal Conjunctiva: Normal Pupils: PERRL Tympanic membrane: Normal Mouth/Lips: Normal Pharynx: Normal Neck: Supple. No: Lymphadenopathy - Respiratory Respiratory status: No respiratory distress Chest status: Nontender Breath sounds: Normal Chest palpation: Normal - Cardiovascular Rhythm: Regular Heart sounds: Normal auscultation Murmur: No - Abdominal Inspection: Normal Distension: No distension Bowel sounds: Normal Tenderness: Nontender. No: Tender Organomegaly: No organomegaly - Back Back: Normal, Nontender. No: CVA tenderness - Extremities General upper extremity: Normal inspection, Nontender, Normal color, Normal ROM , Normal temperature General lower extremity: Nontender, Edema - Bilateral lower legs mild edema, Normal color, Normal ROM, Normal temperature, Normal weight bearing. No: Dacia' s sign - Neurological Neuro grossly intact: Yes Cognition: Normal Orientation: AAOx4 Cal Coma Scale Eye Opening: Spontaneous [place] Coma Scale Verbal: Oriented [place] Coma Scale Motor: Obeys Commands [place] Coma Scale Total: 15 Speech: Normal Motor strength normal: LUE, RUE, LLE, RLE Sensory: Normal - Psychological Associated symptoms: Normal affect, Normal mood - Skin Skin Temperature: Warm Skin Moisture: Dry Skin Color: Normal Skin irregularity: negative: Rash Course - Re-evaluation Re-evalutation: 04/09/18 10:42 EKG shows normal sinus rhythm with LVH, no acute change, QT 412, QTc 470, no old EKG to compare to this EKG. 04/09/18 11:39 Patient has been up to the bathroom without dizziness. She has not had any of the symptoms while here in the density department her hemoglobin is 10.7 which we have no record of her being that low before. She has not had any bloody stools or black stools. I am going to call and speak with Dr. Amin do so that he knows about this patient. Chemistry is normal except a potassium of 3.4. Urine is negative for infection. 04/09/18 11:[address] Amin and discuss the hemoglobin symptoms and workup done today. He states that she has dizzy episodes in the past. That she is fine going home and he will see her next week and I explained this to the patient. Her grandson will come take her home. - Vital Signs Vital signs: Temp Pulse Resp BP Pulse Ox 98.7 F 81 15 153/66 H 98 04/09/18 09:43 04/09/18 09:43 04/09/18 11:01 04/09/18 11:01 04/09/18 10:18 - Laboratory Result Diagrams: 04/09/18 10:14 04/09/18 10:14 Laboratory results interpreted by me: 04/09/18 04/09/18 04/09/18 10:05 10:14 10:14 RBC 3.28 L Hgb 10.7 L Hct 32.6 L MCV 99 H RDW 15.6 H Sodium 145.7 H Potassium 3.4 L Carbon Dioxide 32 H Est GFR (Non-Af Amer) 52 L Creatine Kinase 26 L Ur Leukocyte Esterase SMALL H Discharge - Discharge Clinical Impression: Episode of dizziness Condition: Good Disposition: HOME, SELF-CARE Instructions: Dizziness ([facility]) Additional Instructions: Dr. Amin want to do to be seen in his office next week Return to the emergency room this weekend for any concerns or symptoms Referrals: HEBERT AMIN MD [Primary Care Provider] - 04/11/18
[2018-04-09 10:40] LABS: ABSOLUTE BASOPHILS # (AUTO) 0.1 10^3/uL (0.0-0.2); ABSOLUTE EOSINOPHILS # (AUTO) 0.3 10^3/uL (0.0-0.6); ABSOLUTE LYMPHOCYTES (AUTO) 1.8 10^3/uL (0.5-4.7); ABSOLUTE MONOCYTES (AUTO) 0.7 10^3/uL (0.1-1.4); ABSOLUTE NEUT (AUTO) 5.6 10^3/uL (1.7-8.2); BASOPHILS % (AUTO) 0.8 % (0-2); EOSINOPHILS % (AUTO) 3.8 % (0-6); HEMATOCRIT 32.6 % (36.0-47.0); HEMOGLOBIN 10.7 g/dL (12.0-15.5); MEAN CORPUSCULAR HEMOGLOBIN 32.4 pg (27.0-33.4); MEAN CORPUSCULAR HGB CONC 32.6 g/dL (32.0-36.0); MEAN CORPUSCULAR VOLUME 99 fl (80-97); MONOCYTES % (AUTO) 8.2 % (3-13); PLATELET COUNT 277 10^3/uL (150-450); RED BLOOD COUNT 3.28 10^6/uL (3.72-5.28); RED CELL DISTRIBUTION WIDTH 15.6 % (11.5-14.0); SEGMENTED NEUTROPHILS % (AUTO) 66.2 % (42-78); TOTAL CELLS COUNTED % (AUTO) 100 %; WHITE BLOOD COUNT 8.5 10^3/uL (4.0-10.5)
[2018-04-09 10:49] LABS: APPEARANCE,URINE CLEAR; BILIRUBIN,URINE NEGATIVE (NEGATIVE); COLOR,URINE COLORLESS; GLUCOSE, URINE NEGATIVE (NEGATIVE); KETONES,URINE NEGATIVE (NEGATIVE); LEUKOCYTE ESTERASE,URINE SMALL (NEGATIVE); NITRITE,URINE NEGATIVE (NEGATIVE); PROTEIN,URINE NEGATIVE (NEGATIVE); URINE SPECIFIC GRAVITY 1.004; UROBILINOGEN,URINE NEGATIVE mg/dL (<2.0)
[2018-04-09 11:07] LABS: ALANINE AMINOTRANSFERASE 17 U/L (9-52); ALBUMIN 4.1 g/dL (3.5-5.0); ALKALINE PHOSPHATASE 87 U/L (38-126); ANION GAP 13 (5-19); ASPARTATE AMINO TRANSFERASE 29 U/L (14-36); BILIRUBIN,DIRECT 0.4 mg/dL (0.0-0.4); BILIRUBIN,TOTAL 0.7 mg/dL (0.2-1.3); BLOOD UREA NITROGEN 14 mg/dL (7-20); CALCIUM 9.3 mg/dL (8.4-10.2); CARBON DIOXIDE 32 mmol/L (22-30); CHLORIDE 101 mmol/L (98-107); CREATINE KINASE 26 U/L (30-135); GLUCOSE 99 mg/dL (75-110); POTASSIUM 3.4 mmol/L (3.6-5.0); SODIUM 145.7 mmol/L (137-145); TOTAL PROTEIN 7.9 g/dL (6.3-8.2)
[2018-04-09 11:30] LABS: CREATINE KINASE MB < 0.22 ng/mL (<4.55); TROPONIN I < 0.012 ng/mL
[2018-04-09 11:55] VITALS: BP 146/80
--- NOTE | 2018-04-09 17:29 | EKG REPORT ---
SEVERITY:- ABNORMAL ECG - SINUS RHYTHM LVH WITH SECONDARY REPOLARIZATION ABNORMALITY : Confirmed by: Melody Farmer 09-Apr-2018 17:29:12
== END 2018-04-09 11:55 | disposition home or self-care (01) ==
LOC: ER 09:33
DX: R42 Dizziness and giddiness (principal); I10 Essential (primary) hypertension; I51.7 Cardiomegaly; R60.0 Localized edema; Z88.6 Allergy status to analgesic agent; Z87.891 Personal history of nicotine dependence
CPT/HCPCS: 36415; 80053; 81001; 82550; 82553; 84443; 84484; 85025; 87086; 87088; 93005; 93010; 99284

== ENCOUNTER 2019-12-19 18:04 | Emergency (ER) | payer MEDICARE, MEDICAID ==
[2019-12-19] MEDS ORDERED: AMLODIPINE BESYLATE 5 MG TABLET PO ONE (18:37)
--- NOTE | 2019-12-19 18:37 | ER Document Report ---
ED Medical Screen (RME) - General Chief Complaint: High Blood Pressure Stated Complaint: WHEEZING Time Seen by Provider: 12/19/19 18:26 Primary Care Provider: HEBERT AMIN MD [Primary Care Provider] - Follow up as needed Mode of Arrival: Ambulatory Information source: Patient, Relative - daughter Notes: 79-year-old female presents emergency department with wheeze shortness of breath for the past month. Also hearing people talking that are not there. Patient reports she quit taking her medications about a month ago because she did not have the right food. No complaints of fever vomiting or diarrhea. Patient is very pleasant calm laughs easily. I have greeted and performed a rapid initial assessment of this patient. A comprehensive ED assessment and evaluation of the patient, analysis of test results and completion of the medical decision making process will be conducted by additional ED providers. TRAVEL OUTSIDE OF THE [place] IN LAST 30 DAYS: No - Related Data Allergies/Adverse Reactions: aspirin Allergy (Verified 12/19/19 18:19) Past Medical History - Social History Chew tobacco use (# tins/day): No Frequency of alcohol use: None Drug Abuse: None - Past Medical History Cardiac Medical History: Reports: Hx Hypercholesterolemia, Hx Hypertension Renal/ Medical History: Denies: Hx Peritoneal Dialysis GI Medical History: Reports: Hx Gastroesophageal Reflux Disease Past Surgical History: Reports: Hx Section, Hx Cholecystectomy Physical Exam - Vital signs Vitals: Temp Pulse Resp BP Pulse Ox 98.7 F 75 16 234/81 H 99 12/19/19 18:10 12/19/19 18:10 12/19/19 18:10 12/19/19 18:10 12/19/19 18:10 Course - Vital Signs Vital signs: Temp Pulse Resp BP Pulse Ox 98.7 F 75 16 234/81 H 99 12/19/19 18:10 12/19/19 18:10 12/19/19 18:10 12/19/19 18:10 12/19/19 18:10 Doctor's Discharge - Discharge Referrals: HEBERT AMIN MD [Primary Care Provider] - Follow up as needed
--- NOTE | 2019-12-19 19:05 | RADIOLOGY REPORT (SQ) ---
EXAM DESCRIPTION: CHEST 2 VIEWS COMPLETED DATE/TIME: 12/19/2019 6:58 pm REASON FOR STUDY: sob COMPARISON: None. EXAM PARAMETERS: NUMBER OF VIEWS: two views TECHNIQUE: Digital Frontal and Lateral radiographic views of the chest acquired. RADIATION DOSE: NA LIMITATIONS: none FINDINGS: LUNGS AND PLEURA: No opacities, masses or pneumothorax. No pleural effusion. MEDIASTINUM AND HILAR STRUCTURES: No masses or contour abnormalities. HEART AND VASCULAR STRUCTURES: Heart normal size. No evidence for failure. BONES: No acute findings. HARDWARE: None in the chest. OTHER: No other significant finding. IMPRESSION: NO ACUTE RADIOGRAPHIC FINDING IN THE CHEST. TECHNICAL DOCUMENTATION: JOB ID: [id number] 2010 [facility]- All Rights Reserved Reading location - IP/workstation name: [email or web address]
[2019-12-19 21:58] LABS: ABSOLUTE EOSINOPHILS # (AUTO) 0.2 10^3/uL (0.0-0.6); ABSOLUTE LYMPHOCYTES (AUTO) 1.6 10^3/uL (0.5-4.7); ABSOLUTE MONOCYTES (AUTO) 0.5 10^3/uL (0.1-1.4); MEAN CORPUSCULAR HGB CONC 33.1 g/dL (32.0-36.0); RED BLOOD COUNT 3.98 10^6/uL (3.72-5.28); RED CELL DISTRIBUTION WIDTH 16.3 % (11.5-14.0); TOTAL CELLS COUNTED % (AUTO) 100 %
[2019-12-19 21:59] LABS: APPEARANCE,URINE CLOUDY; BILIRUBIN,URINE NEGATIVE (NEGATIVE); COLOR,URINE YELLOW; GLUCOSE, URINE NEGATIVE (NEGATIVE); KETONES,URINE NEGATIVE (NEGATIVE); LEUKOCYTE ESTERASE,URINE LARGE (NEGATIVE); NITRITE,URINE NEGATIVE (NEGATIVE); PROTEIN,URINE 100 mg/dL (NEGATIVE); URINE SPECIFIC GRAVITY 1.024; UROBILINOGEN,URINE NEGATIVE mg/dL (<2.0)
[2019-12-19 22:04] LABS: ABSOLUTE NEUT (AUTO) 3.8 10^3/uL (1.7-8.2); BASOPHILS % (AUTO) 0.4 % (0-2); EOSINOPHILS % (AUTO) 2.9 % (0-6); HEMATOCRIT 38.7 % (36.0-47.0); HEMOGLOBIN 12.8 g/dL (12.0-15.5); LYMPHOCYTES % (AUTO) 26.7 % (13-45); MEAN CORPUSCULAR HEMOGLOBIN 32.2 pg (27.0-33.4); MEAN CORPUSCULAR VOLUME 97 fl (80-97); PLATELET COUNT 216 10^3/uL (150-450); WHITE BLOOD COUNT 6.1 10^3/uL (4.0-10.5)
[2019-12-19 22:13] LABS: URINE AMPHETAMINES SCREEN NEGATIVE; URINE BARBITURATES SCREEN NEGATIVE; URINE BENZODIAZEPINES SCREEN NEGATIVE; URINE COCAINE SCREEN NEGATIVE; URINE MARIJUANA (THC) SCREEN NEGATIVE; URINE METHADONE SCREEN NEGATIVE; URINE PHENCYCLIDINE SCREEN NEGATIVE
[2019-12-19 22:16] LABS: ALBUMIN 4.4 g/dL (3.5-5.0); ALKALINE PHOSPHATASE 76 U/L (38-126); ANION GAP 8 (5-19); ASPARTATE AMINO TRANSFERASE 22 U/L (14-36); BILIRUBIN,DIRECT 0.2 mg/dL (0.0-0.4); BILIRUBIN,TOTAL 0.8 mg/dL (0.2-1.3); BLOOD UREA NITROGEN 33 mg/dL (7-20); CALCIUM 9.6 mg/dL (8.4-10.2); CARBON DIOXIDE 31 mmol/L (22-30); CHLORIDE 100 mmol/L (98-107); GLUCOSE 89 mg/dL (75-110); POTASSIUM 4.5 mmol/L (3.6-5.0); TOTAL PROTEIN 8.4 g/dL (6.3-8.2)
--- NOTE | 2019-12-19 22:21 | EKG REPORT ---
SEVERITY:- ABNORMAL ECG - SINUS RHYTHM RAA, CONSIDER BIATRIAL ABNORMALITIES LEFT VENTRICULAR HYPERTROPHY : Confirmed by: Say Wagoner MD 19-Dec-2019 22:20:26
[2019-12-19 22:24] LABS: ACETAMINOPHEN < 10 ug/mL (10-30); ALCOHOL < 10 mg/dL (NONE DETECTED); SALICYLATE < 1.0 mg/dL (2.0-20.0)
[2019-12-20] MEDS ORDERED: AMLODIPINE BESYLATE 5 MG TABLET PO ONE (00:45)
--- NOTE | 2019-12-20 02:44 | ER Document Report ---
Entered by MEHDI SOUTH SCRIBE 12/20/19 0219 Acting as scribe for:MIKE ORNELAS MD ED General - General Chief Complaint: High Blood Pressure Stated Complaint: WHEEZING Time Seen by Provider: 12/19/19 18:26 Primary Care Provider: HEBERT AMIN MD [Primary Care Provider] - Follow up as needed Mode of Arrival: Ambulatory Information source: Patient, Relative Notes: 79-year-old female presents to the emergency department with her family complaining of wheezing and high blood pressure. Patient stated that she "wanted to get checked out for her breathing condition". Patient states that "as time goes by it gets heavier and then goes away" when asked about her wheezing. Patient states that she has medication for her blood pressure but does not take her medication as prescribed. Patient cannot recall last time she took her blood pressure medication. Patient reports SOB which is worsened when she "uses her walker". Patient denies chest pain and sputum. Patient's daughter states that patient has been having auditory hallucinations of a man's voice at home when she is by herself. Patient denies frequency or burning with urination and dysuria. TRAVEL OUTSIDE OF THE [place] IN LAST 30 DAYS: No - Related Data Allergies/Adverse Reactions: aspirin Allergy (Verified 12/19/19 18:19) Past Medical History - General Information source: Patient, Relative - daughter - Social History Smoking Status: Former Smoker Cigarette use (# per day): No Chew tobacco use (# tins/day): No Frequency of alcohol use: None Drug Abuse: None Lives with: Alone Family History: None, Reviewed & Not Pertinent Patient has suicidal ideation: No Patient has homicidal ideation: No - Past Medical History Cardiac Medical History: Reports: Hx Hypercholesterolemia, Hx Hypertension GI Medical History: Reports: Hx Gastroesophageal Reflux Disease Past Surgical History: Reports: Hx Section, Hx Cholecystectomy, Hx Hysterectomy Review of Systems - Review of Systems Constitutional: No symptoms reported EENT: No symptoms reported Cardiovascular: See HPI, Chest pain Respiratory: See HPI, Short of breath, Wheezing. denies: Sputum Gastrointestinal: No symptoms reported Genitourinary: See HPI. denies: Burning, Dysuria, Frequency Female Genitourinary: No symptoms reported Musculoskeletal: No symptoms reported Skin: No symptoms reported Hematologic/Lymphatic: No symptoms reported Neurological/Psychological: See HPI, Hallucinations - Auditory -: Yes All other systems reviewed and negative Physical Exam - Vital signs Vitals: Temp Pulse Resp BP Pulse Ox 98.7 F 75 16 234/81 H 99 12/19/19 18:10 12/19/19 18:10 12/19/19 18:10 12/19/19 18:10 12/19/19 18:10 - Notes Notes: Physical Exam: General: Alert, appears well. HEENT: Normocephalic. Atraumatic. PERRL. Extraocular movements intact. Oropharynx clear. Neck: Supple. Non-tender. Respiratory: No respiratory distress. Mild wheezing bilaterally. Cardiovascular: Regular rate and rhythm. Abdominal: Normal Inspection. Non-tender. No distension. Normal Bowel Sounds. Back: No gross abnormalities. Extremities: Moves all four extremities. Upper extremities: Normal inspection. Normal ROM. Lower extremities: Normal inspection. No edema. Normal ROM. Neurological: Normal cognition. AAOx4. Normal speech. Psychological: Normal affect. Normal Mood. Skin: Warm. Dry. Normal color. Course - Re-evaluation Re-evalutation: 12/20/19 02:41 Repeat exam patient has trace inspiratory expiratory wheeze. No acute respiratory distress sats are 98% in room air. Was given her blood pressure medications including hydralazine Lasix and nifedipine. Encourage patient to be compliant with taking her blood pressure medications on a daily basis. Most likely patient has no viral URI with trace wheezing at this time. Plan is to put her on 5-day course of prednisone. - Vital Signs Vital signs: Temp Pulse Resp BP Pulse Ox 97.7 F 71 16 221/83 H 97 12/20/19 01:26 12/20/19 01:26 12/20/19 01:26 12/20/19 01:26 12/20/19 01:26 - Laboratory Result Diagrams: 12/19/19 21:24 12/19/19 21:24 Laboratory results interpreted by me: 12/19/19 12/19/19 12/19/19 21:24 21:24 21:24 RDW 16.3 H Carbon Dioxide 31 H BUN 33 H Est GFR ( Amer) 56 L Est GFR (MDRD) Non-Af 46 L Total Protein 8.4 H Urine Protein 100 H Urine Blood SMALL H Ur Leukocyte Esterase LARGE H Salicylates < 1.0 L Acetaminophen < 10 L - Diagnostic Test Radiology reviewed: Image reviewed, Reports reviewed Radiology results interpreted by me: 12/20/19 02:40 Chest x-ray shows no acute process no acute cardiopulmonary disease present no evidence for congestive heart failure. - EKG Interpretation by Me Additional EKG results interpreted by me: 12/20/19 02:40 Twelve-lead EKG done on 12/19/2019 at 2058 normal sinus rhythm rate of 68 right atrial abnormality and left ventricular hypertrophy no other acute ST-T wave changes. Discharge - Discharge Clinical Impression: Viral URI, Acute bronchospasm due to viral infection, Uncontrolled hypertension Condition: Stable Disposition: HOME, SELF-CARE Instructions: Upper Respiratory Illness ([facility]), High Blood Pressure ([facility]) Additional Instructions: Bronchospasm You have tightness in the bronchial tubes, called bronchospasm. This often occurs with bronchial infections. Allergies, inhaled chemicals, and polluted or cold air can also provoke bronchospasm. It's more likely in patients with asthma in the family. Emergency treatment of bronchospasm may include adrenaline shots or bro nchodilator aerosol. You may feel lightheaded and have a rapid pulse for an hour or two. Rest and get plenty of fluids. At home, we'll treat you with a bronchodilator inhaler. Antibiotics and c orticosteroids may be required for some patients. Until you recover, avoid chemical fumes, dusts, pollens, and exercising in very cold or dry air. If you smoke, stop now!! If you develop a fever, increased wheezing, chest pain, or severe shortness of breath, you should contact the doctor immediately. Prescriptions: Prednisone [Deltasone 20 mg Tablet] 1 tab PO DAILY 5 Days #5 tablet Forms: Elevated Blood Pressure Referrals: HEBERT AMIN MD [Primary Care Provider] - Follow up as needed I personally performed the services described in the documentation, reviewed and edited the documentation which was dictated to the scribe in my presence, and it accurately records my words and actions.
[2019-12-20 03:21] VITALS: BP 170/75
== END 2019-12-20 03:32 | disposition home or self-care (01) ==
LOC: ER 18:04
DX: I11.9 Hypertensive heart disease without heart failure (principal); T46.5X6A Underdosing of other antihypertensive drugs, initial encounter; T50.1X6A Underdosing of loop [high-ceiling] diuretics, initial encounter; T46.1X6A Underdosing of calcium-channel blockers, initial encounter; Z91.128 Patient's intentional underdosing of medication regimen for other reason; Z91.14 Patient's other noncompliance with medication regimen; J06.9 Acute upper respiratory infection, unspecified; B97.89 Other viral agents as the cause of diseases classified elsewhere; J98.01 Acute bronchospasm; R06.2 Wheezing; R06.02 Shortness of breath; R44.0 Auditory hallucinations; Z87.891 Personal history of nicotine dependence; Z88.8 Allergy status to other drugs, medicaments and biological substances
CPT/HCPCS: 36415; 71046; 80053; 80307; 81001; 85025; 93005; 93010; 99285

== ENCOUNTER 2020-09-16 14:48 | Emergency (ER) | payer MEDICARE, MEDICAID ==
[2020-09-16 15:10] VITALS: BP 236/86
--- NOTE | 2020-09-16 16:32 | ER Document Report ---
ED Medical Screen (RME) - General Stated Complaint: FALL/HEAD INJURY Time Seen by Provider: 09/16/20 16:05 Primary Care Provider: HEBERT AMIN MD [Primary Care Provider] - Follow up as needed TRAVEL OUTSIDE OF THE [place] IN LAST 30 DAYS: No - HPI Notes: Patient is a 79 y/o female with a hx of HTN who presents s/p fall. Patient states she was walking to the bathroom when she became lightheaded. She tried grabbing on to something but fell back and hit her head. She is complaining of head and neck pain. She denies chest pain, shortness of breath, nausea, vomiting and fever. She denies taking any blood thinners. - Related Data Allergies/Adverse Reactions: aspirin Allergy (Verified 12/19/19 18:19) Past Medical History - Past Medical History Cardiac Medical History: Reports: Hx Hypercholesterolemia, Hx Hypertension Renal/ Medical History: Denies: Hx Peritoneal Dialysis GI Medical History: Reports: Hx Gastroesophageal Reflux Disease Past Surgical History: Reports: Hx Section, Hx Cholecystectomy, Hx Hysterectomy Physical Exam - Vital signs Vitals: Temp Pulse Resp BP Pulse Ox 97.6 F 66 16 236/86 H 100 09/16/20 15:08 09/16/20 15:08 09/16/20 15:08 09/16/20 15:08 09/16/20 15:08 - HEENT Head: Atraumatic - Respiratory Respiratory status: No respiratory distress Breath sounds: Normal - Cardiovascular Rhythm: Regular Heart sounds: Normal auscultation - Neurological Additional motor exam normals: Equal navigation teacher Notes: Normal but slow gait, ambulates with a walker Course - Re-evaluation Re-evalutation: Patient's blood pressure in triage is 266/81 on left arm and 236/86 on right arm. Patient upgraded to a level 2 and charge nurse notified of her need to be brought back to a room. I have greeted and performed a rapid initial assessment of this patient. A comprehensive ED assessment and evaluation of the patient, analysis of test results and completion of medical decision making process will be conducted by an additional ED providers. - Vital Signs Vital signs: Temp Pulse Resp BP Pulse Ox 97.6 F 66 16 236/86 H 100 09/16/20 15:08 09/16/20 15:08 09/16/20 15:08 09/16/20 15:08 09/16/20 15:08 Doctor's Discharge - Discharge Referrals: HEBERT AMIN MD [Primary Care Provider] - Follow up as needed
[2020-09-16 17:22] LABS: ABSOLUTE EOSINOPHILS # (AUTO) 0.2 10^3/uL (0.0-0.6); ABSOLUTE LYMPHOCYTES (AUTO) 1.1 10^3/uL (0.5-4.7); ABSOLUTE MONOCYTES (AUTO) 0.5 10^3/uL (0.1-1.4); ABSOLUTE NEUT (AUTO) 2.9 10^3/uL (1.7-8.2); BASOPHILS % (AUTO) 0.6 % (0-2); EOSINOPHILS % (AUTO) 3.4 % (0-6); HEMATOCRIT 36.3 % (36.0-47.0); HEMOGLOBIN 12.4 g/dL (12.0-15.5); LYMPHOCYTES % (AUTO) 22.8 % (13-45); MEAN CORPUSCULAR HEMOGLOBIN 33.6 pg (27.0-33.4); MEAN CORPUSCULAR VOLUME 99 fl (80-97); MONOCYTES % (AUTO) 10.4 % (3-13); PLATELET COUNT 170 10^3/uL (150-450); RED BLOOD COUNT 3.68 10^6/uL (3.72-5.28); RED CELL DISTRIBUTION WIDTH 14.9 % (11.5-14.0); SEGMENTED NEUTROPHILS % (AUTO) 62.8 % (42-78); TOTAL CELLS COUNTED % (AUTO) 100 %; WHITE BLOOD COUNT 4.6 10^3/uL (4.0-10.5)
--- NOTE | 2020-09-16 17:36 | RADIOLOGY REPORT (SQ) ---
EXAM DESCRIPTION: CT HEAD WITHOUT IMAGES COMPLETED DATE/TIME: 09/16/2020 5:19 pm REASON FOR STUDY: head injury COMPARISON: 12/27/2017 TECHNIQUE: Axial images acquired through the brain without intravenous contrast. Images reviewed wi th bone, brain and subdural windows. Additional sagittal and coronal reconstructions were generated. Images stored on PACS. All CT scanners at this facility use dose modulation, iterative reconstruction, and/or weight based d osing when appropriate to reduce radiation dose to as low as reasonably achievable (ALARA). [facility]: Dose Right [facility]: CareDose [facility]: Dose Right [facility]: Teradose 4D [facility]: Smart Boxfish RADIATION DOSE: CT Rad equipment meets quality standard of care and radiation dose reduction techniq ues were employed. CTDIvol: 53.2 mGy. DLP: 911 mGy-cm. LIMITATIONS: None. FINDINGS: VENTRICLES: Normal size and contour. The cisterns are patent. CEREBRUM: Chronic small vessel ischemic changes, stable findings. Old small relief remote lacunes. No masses. No hemorrhage. No midline shift. No evidence for acute infarction. CEREBELLUM: No masses. No hemorrhage. No alteration of density. No evidence for acute infarction. EXTRAAXIAL SPACES: Age related involutional change. No fluid collections. No masses. ORBITS AND GLOBE: No intra- or extraconal masses. Normal contour of globe without masses. CALVARIUM: No fracture. PARANASAL SINUSES: Small mucous retention cyst or polyp in the right maxillary sinus. SOFT TISSUES: No mass or hematoma. OTHER: Incidentally, partial empty sella. Mild atherosclerotic changes involving the cavernous port ion of the internal carotid arteries. IMPRESSION: 1. No significant interval changes since the prior examination dated 12/27/2017. No acu te intracranial abnormality. 2. Atrophy, old small remote lacunes, and chronic small vessel ischemic changes. EVIDENCE OF ACUTE STROKE: NO COMMENT: Quality ID # [id number]: Final reports with documentation of one or more dose reduction techniques (e.g., Automated exposure control, adjustment of the mA and/or kV according to patient size, use of iterative reconstruction technique) TECHNICAL DOCUMENTATION: JOB ID: [id number] 2010 [employer]- All Rights Reserved Reading location - IP/workstation name: [email or web address]
[2020-09-16 17:38] LABS: ALBUMIN 4.1 g/dL (3.5-5.0); ALKALINE PHOSPHATASE 61 U/L (38-126); ANION GAP 9 (5-19); ASPARTATE AMINO TRANSFERASE 19 U/L (14-36); BILIRUBIN,DIRECT 0.1 mg/dL (0.0-0.4); BLOOD UREA NITROGEN 18 mg/dL (7-20); CARBON DIOXIDE 29 mmol/L (22-30); CHLORIDE 99 mmol/L (98-107); GLUCOSE 80 mg/dL (75-110); POTASSIUM 3.8 mmol/L (3.6-5.0); TOTAL PROTEIN 7.2 g/dL (6.3-8.2)
--- NOTE | 2020-09-16 17:39 | RADIOLOGY REPORT (SQ) ---
EXAM DESCRIPTION: CT CERVICAL SPINE WITHOUT IMAGES COMPLETED DATE/TIME: 09/16/2020 5:19 pm REASON FOR STUDY: head injury COMPARISON: None. TECHNIQUE: Axial images acquired through the cervical spine without intravenous contrast. Images re viewed with lung, soft tissue and bone windows. Reconstructed coronal and sagittal MPR images review ed. Images stored on PACS. All CT scanners at this facility use dose modulation, iterative reconstruction, and/or weight based d osing when appropriate to reduce radiation dose to as low as reasonably achievable (ALARA). [facility]: Dose Right [facility]: CareDose [facility]: Dose Right [facility]: Teradose 4D [facility]: Smart Sporting Mouth RADIATION DOSE: CT Rad equipment meets quality standard of care and radiation dose reduction techniq ues were employed. CTDIvol: 18.0 mGy. DLP: 308 mGy-cm. mGy. LIMITATIONS: None. FINDINGS: ALIGNMENT: Anatomic. MINERALIZATION: Normal. VERTEBRAL BODIES: No fractures or dislocation. DISCS: Is narrowing of the disc spaces from C4-C7 with marginal osteophytes. FACETS, LATERAL MASSES, POSTERIOR ELEMENTS: No fractures or dislocations or other acute findings. Th ere is spina bifida occulta at C1. HARDWARE: None in the spine. VISUALIZED RIBS: No fractures. LUNG APICES AND SOFT TISSUES: No significant or acute findings. OTHER: No other significant finding. IMPRESSION: Degenerative disc disease and spondylosis. No acute findings. TECHNICAL DOCUMENTATION: JOB ID: [id number] Quality ID # [id number]: Final reports with documentation of one or more dose reduction techniques (e.g., Au tomated exposure control, adjustment of the mA and/or kV according to patient size, use of iterative reconstruction technique) 2010 [employer]- All Rights Reserved Reading location - IP/workstation name: [email or web address]
[2020-09-16 18:57] LABS: APPEARANCE,URINE CLEAR; BILIRUBIN,URINE NEGATIVE (NEGATIVE); COLOR,URINE YELLOW; GLUCOSE, URINE NEGATIVE (NEGATIVE); KETONES,URINE NEGATIVE (NEGATIVE); LEUKOCYTE ESTERASE,URINE MODERATE (NEGATIVE); NITRITE,URINE NEGATIVE (NEGATIVE); PROTEIN,URINE NEGATIVE (NEGATIVE); UROBILINOGEN,URINE NEGATIVE mg/dL (<2.0)
[2020-09-16] MEDS ORDERED: HYDRALAZINE HCL 25 MG TABLET PO ONE (18:59)
[2020-09-16] MEDS ORDERED: AMLODIPINE BESYLATE 5 MG TABLET PO ONE (19:00)
--- NOTE | 2020-09-16 19:12 | ER Document Report ---
ED General - General Stated Complaint: FALL/HEAD INJURY Time Seen by Provider: 09/16/20 16:05 Primary Care Provider: HEBERT AMIN MD [Primary Care Provider] - Follow up as needed TRAVEL OUTSIDE OF THE [place] IN LAST 30 DAYS: No - HPI Notes: Patient is a 79-year-old female who presents to the emergency department for evaluation. She got up to go to the bathroom. She was walking down the [place] she became dizzy. She went to grab a hold of the doorknob to balance herself, missed, and fell backwards, striking her head. She denies losing consciousness. She was only on the ground for a minute or 2. She was able to scoot to the bathroom, then was walking around on her own power. She has minimal pain in the posterior head and neck. Patient also remarks that she has not taken her blood pressure medication for at least a month. She states she is Wednesday to her primary care provider's office, and has not been there as a result. She denies any chest pain or shortness of breath. She denies any difficulty seeing, speaking, swallowing. She is moving her arms and legs without difficulty. She complains of some numbness in her left fingertips which has been ongoing for some time, she cannot further qualify this for me. - Related Data Allergies/Adverse Reactions: aspirin Allergy (Verified 12/19/19 18:19) Past Medical History - General Information source: Patient - Social History Smoking Status: Former Smoker Family History: None, Reviewed & Not Pertinent - Past Medical History Cardiac Medical History: Reports: Hx Hypercholesterolemia, Hx Hypertension Renal/ Medical History: Denies: Hx Peritoneal Dialysis GI Medical History: Reports: Hx Gastroesophageal Reflux Disease Past Surgical History: Reports: Hx Section, Hx Cholecystectomy, Hx Hysterectomy Review of Systems - Review of Systems Constitutional: No symptoms reported EENT: No symptoms reported Cardiovascular: See HPI Respiratory: No symptoms reported Gastrointestinal: No symptoms reported Genitourinary: No symptoms reported Musculoskeletal: See HPI Skin: No symptoms reported Neurological/Psychological: See HPI -: Yes All other systems reviewed and negative Physical Exam - Vital signs Vitals: Temp Pulse Resp BP Pulse Ox 97.6 F 66 16 236/86 H 100 09/16/20 15:08 09/16/20 15:08 09/16/20 15:08 09/16/20 15:08 09/16/20 15:08 - Notes Notes: Vital signs reviewed, please refer to chart. Head is normocephalic, atraumatic. I do not appreciate any hematomas or tenderness to the posterior occiput. Pupi ls equal round, reactive to light. Examination of the cervical spine is no midline tenderness or step-off. No paraspinal musculature tenderness is appreciated. No significant pain with rotation, flexion, extension, axial loading.. Heart is regular rate and rhythm. Lungs are clear to auscultation bilaterally. Abdomen is soft, nontender, normoactive bowel sounds throughout. Extremities without cyanosis, clubbing. Posterior calves are nontender. Peripheral pulses are equal. Skin is warm and dry. Patient is awake, alert, oriented x3. Cranial nerves II - XII are grossly intact without focal neurological deficits. Strength is plus 4 out of 5 bilateral upper and lower extremities. Sensation is intact. Reflexes symmetrical. Intact [id number], rapid alternating movements, [id number]. Course - Re-evaluation Re-evalutation: 09/16/20 19:14 Patient presents to the emergency department for evaluation. Laboratory investigations, EKG, imaging obtained. Imaging fails to reveal any signs of acute fracture or intracranial bleeding. EKG shows longstanding LVH but no acute ST changes. Laboratory investigations are largely unremarkable. Patient's blood pressure was markedly elevated. I looked through her history, this is not a new problem for her. I am sure this is largely in part secondary to noncompliance with her medication regimen. We talked at length about this issue. She states she may need to obtain a new primary care provider. I told her I would give her the name of our on-call physician, I encouraged her to speak to her friends and family regarding their primary care provider if she needs a new doctor. She voiced understanding. Otherwise she is given a dose of Apresoline as well as Norvasc. I will write her prescriptions for same. She is to return to the emergency department with worsening or new concerning symptoms of any sort. - Vital Signs Vital signs: Temp Pulse Resp BP Pulse Ox 97.5 F 66 16 236/86 H 100 09/16/20 19:50 09/16/20 15:08 09/16/20 15:08 09/16/20 15:08 11/09/20 15:08 - Laboratory Result Diagrams: 09/16/20 17:01 09/16/20 17:01 Laboratory results interpreted by me: 09/16/20 09/16/20 09/16/20 17:01 17:01 17:01 RBC 3.68 L MCV 99 H MCH 33.6 H RDW 14.9 H Est GFR ( Amer) 52 L Est GFR (MDRD) Non-Af 43 L Ur Leukocyte Esterase MODERATE H - Diagnostic Test Radiology reviewed: Reports reviewed Radiology results interpreted by me: 09/16/20 19:[address] 09/16/20 16:14 IMPRESSION: Degenerative disc disease and spondylosis. No acute findings. Head CT 09/16/20 16:14 IMPRESSION: 1. No significant interval changes since the prior examination dated 12/27/2017. No acute intracranial abnormality. 2. Atrophy, old small remote lacunes, and chronic small vessel ischemic changes. EVIDENCE OF ACUTE STROKE: NO - EKG Interpretation by Me Additional EKG results interpreted by me: 09/16/20 19:15 Sinus arrhythmia with a rate of 59 bpm. Left axis deviation. Criteria for LVH. Nonspecific T wave flattening. No acute ST elevation concerning for infarction. No significant change in compared to prior study of December 19, 2019. Discharge - Discharge Clinical Impression: Uncontrolled hypertension, Dizziness Closed head injury Qualifiers: Encounter type: initial encounter Qualified Code(s): S09.90XA - Unspecified injury of head, initial encounter Condition: Stable Disposition: HOME, SELF-CARE Instructions: Dizziness ([facility]), High Blood Pressure, Requiring Treatment ([facility]) Additional Instructions: No clear cause was found for your dizziness today. Please take your blood pressure medications at home as prescribed. It is important that your blood pressure be better controlled, to reduce your risk of heart attack, stroke, kidney disease. Follow-up with primary care next week. Return to the emergency department with worsening or new concerning symptoms of any sort. Prescriptions: Hydralazine HCl [Apresoline 25 mg Tablet] 25 mg PO Q8 #90 tablet Amlodipine Besylate [Norvasc 5 mg Tablet] 5 mg PO Q12 #60 tablet Referrals: HEBERT AMIN MD [Primary Care Provider] - Follow up as needed NIRANJAN GRAVES MD [ACTIVE STAFF] - Follow up as needed ROBBIN CASTRO MD [ACTIVE STAFF] - Follow up as needed
--- NOTE | 2020-09-16 22:45 | EKG REPORT ---
SEVERITY:- ABNORMAL ECG - SINUS ARRHYTHMIA, RATE 52-61 SINUS PAUSE WITH JUNCTIONAL/LOW ATRIAL ESCAPE MICHELLE, CONSIDER BIATRIAL ABNORMALITIES LVH WITH SECONDARY REPOLARIZATION ABNORMALITY : Confirmed by: Melody Farmer 16-Sep-2020 22:45:05
== END 2020-09-16 20:36 | disposition home or self-care (01) ==
LOC: ER 14:48
DX: S09.90XA Unspecified injury of head, initial encounter (principal); R42 Dizziness and giddiness; W19.XXXA Unspecified fall, initial encounter; Z87.891 Personal history of nicotine dependence
CPT/HCPCS: 93005; 99285; 36415; 85025; 80053; 81001; 84484; 70450; 72125; 93010; A9270 ×2